=== PATIENT | male | born 1990 | race Caucasian/White ===

== ENCOUNTER 2022-01-28 18:56 | Emergency (ER) | payer OTHER ==
[2022-01-28] MEDS ORDERED: NARCAN4 MG IN (19:48)
== END 2022-01-28 20:46 | disposition home or self-care (01) ==
LOC: FER 18:56
DX: T40.1X1A Poisoning by heroin, accidental (unintentional), initial encounter (principal); H10.9 Unspecified conjunctivitis; F17.200 Nicotine dependence, unspecified, uncomplicated; Z88.2 Allergy status to sulfonamides; Z88.8 Allergy status to other drugs, medicaments and biological substances; Z28.310 Unvaccinated for COVID-19
CPT/HCPCS: 93005; J2310; J2405; J7030